=== PATIENT | male | born 1995 | race Caucasian/White ===

== ENCOUNTER 2020-05-02 22:20 | Observation (INO) | payer OTHER ==
[~2020-05-02] VITALS: Ht 185.4 cm; Wt 66.7 kg
[~2020-05-02 22:20] MED LIST: DEXAMETHASONE SOD PHOS INJ 4 MG/ML VIAL ONE; LIDOCAINE HCL 2% LOCAL INJ 5 ML SDV VIAL INJ ONE; METOCLOPRAMIDE HCL 10 MG/2ML VIAL ONE; ONDANSETRON HCL INJ 2MG/ML 2ML 2 MG/ML VIAL ONE; PROPOFOL IV EMULSION 10 MG/ML 20 ML VIAL ONE; ROCURONIUM BROMIDE 10 MG/ML 5ML VIAL IV ONE; SEVOFLURANE INHAL SOLN 250 ML PEN BTL ONE; SUCCINYLCHOLINE CHLORIDE 20 MG/ML 10ML VIAL ONE
--- NOTE | 2020-05-02 22:33 | Emergency Department Note ---
History of Present Illnes History of Present Illness Chief Complaint: Eye, Ear, Nose, Throat, Dental History of Present Illness This is a 24 year old male probably hx of esophageal stricture form history c/o " a taco stuck in my chest, some blood coming out, vomiting blood few times [employer]. He had similar problems year ago, told to f/u with GI but he never did. . Historian: Patient Arrival Mode: Car Rotary Cutter Feeder Required: No Onset (how long ago): minute(s) Radiation: Reports non-radiation Severity: moderate Onset quality: sudden Duration (how long): hour(s) Timing of current episode: constant Progression: unchanged Relieving factors: none Exacerbating factors: none Associated symptoms: Reports denies other symptoms Treatments prior to arrival: none Past Medical/Family History Physician Review I have reviewed the patient's past medical and family history. Any updates have been documented here. Past Medical History Recent Fever: No Clinical Suspicion of Infectio: No New/Unexplained Change in Ment: No Past Surgical History: None Social History Smoking Cessation: Never Smoker Counseling Performed: No Alcohol Use: None Any Illegal Drug Use: No TB Exposure/Symptoms: No Physically hurt or threatened: No ([employer], will graudate in october) Family History Family history of heart diseas: No Review of Systems Review of Systems Constitutional: Reports no symptoms EENTM: Reports no symptoms Cardiovascular: Reports no symptoms Respiratory: Reports no symptoms Gastrointestinal: Reports as per HPI, Reports abdominal pain, Reports nausea, Reports vomiting Genitourinary: Reports no symptoms Musculoskeletal: Reports no symptoms Integumentary: Reports no symptoms Neurological: Reports no symptoms Psychological: Reports no symptoms Endocrine: Reports no symptoms Hematological/Lymphatic: Reports no symptoms Physical Exam Related Data Allergies: Coded Allergies: No Known Drug Allergies (Verified Allergy, Unknown, 05/02/20) Vital signs reviewed: Yes Physical Exam CONSTITUTIONAL Constitutional: Present well-developed, Present well-nourished HENT HENT: Present normocephalic, Present atraumatic, Present oropharynx clear/moist, Present nose normal HENT L/R: Present left ext ear normal, Present right ext ear normal EYES Eyes: Reports PERRL, Reports conjunctivae normal NECK Neck: Present ROM normal PULMONARY Pulmonary: Present effort normal, Present breath sounds normal CARDIOVASCULAR Cardiovascular: Present regular rhythm, Present heart sounds normal, Present capillary refill normal, Present normal rate GASTROINTESTINAL Abdominal: Present soft, Present nontender, Present bowel sounds normal GENITOURINARY Genitourinary: Present exam deferred SKIN Skin: Present warm, Present dry MUSCULOSKELETAL Musculoskeletal: Present ROM normal NEUROLOGICAL Neurological: Present alert, Present oriented x 3, Present no gross motor or sensory deficits PSYCHOLOGICAL Psychological: Present mood/affect normal, Present judgement normal Results Laboratory Lab results reviewed: Yes Laboratory comments hgb ok Assessment & Plan Medical Decision Making MDM esophageal stricture vs dysmotility, he may have developed fissures after retching and caused GI bleed. Reassessment Reassessment time: 23:23 Reassessment still hurting and can't keep fluid down, he did have some blood from vomitus Assessment & Plan Final Impression: (1) Upper GI bleeding (2) Esophageal stricture (3) Choking Depart Disposition: ADMITTED Home Meds Reported Medications Pantoprazole Sodium* (PROTONIX) 40 Mg Tablet., 40 MG PO BID, TAB 05/04/20 Medications in the ED protonix IV, ZOfran IV, Glucagon IV Physician Attestation Provider Attestation the case discussed with Dr Aden. add consult Dr Bogdan Madsen. I have also discussed with Dr Madsen. JIMENA DAVIDSON MD May 02, 2020 22:33
[2020-05-02] MEDS ORDERED: GLUCAGON FOR INJ 1 MG VIAL ONE (22:42)
[2020-05-02] MEDS ORDERED: PANTOPRAZOLE 40 MG 10ML VIAL ONE (22:48)
[2020-05-02] MEDS ORDERED: ONDANSETRON HCL INJ 2MG/ML 2ML 2 MG/ML VIAL ONE (22:48)
[2020-05-02] MEDS ORDERED: SODIUM CHLORIDE 0.9% 1000ML 1,000 ML ONE (22:48)
[2020-05-02] MEDS ORDERED: PANTOPRAZOLE 40 MG 10ML VIAL IV STA (22:56)
[2020-05-02] MEDS ORDERED: SODIUM CHLORIDE 0.9% 1000ML 1,000 ML IV STA (22:56)
[2020-05-02] MEDS ORDERED: GLUCAGON FOR INJ 1 MG VIAL IV ONE (23:00)
[2020-05-02] MEDS ORDERED: ONDANSETRON HCL INJ 2MG/ML 2ML 2 MG/ML VIAL IV ONE (23:00)
[2020-05-02] MEDS ORDERED: PROMETHAZINE 25MG/ NS 50ML (IV) IV PRN (23:30)
[2020-05-02] MEDS ORDERED: MORPHINE SULFATE INJ 4 MG/ML INJ 1ML IV STA (23:30)
[2020-05-02] MEDS ORDERED: HYDROMORPHONE 1MG/1ML INJ IV PRN (23:30)
[2020-05-02] MEDS ORDERED: HYDROMORPHONE 2MG/ML 2 MG/ML ML IV PRN (23:30)
[2020-05-02] MEDS ORDERED: DIPHENHYDRAMINE HCL INJ 50 MG/ML VIAL IV PRN (23:30)
--- NOTE | 2020-05-02 23:40 | NUR ---
CALLED [facility] FOR TRANSPORT TO [facility] RM 295. ETA 30-45MINS
[2020-05-02] MEDS: SODIUM CHLORIDE 0.9% 1000ML 1,000 ML IV SCH (23:44)
--- NOTE | 2020-05-02 23:45 | NUR ---
REPORT TO RONEL OLGUIN FOR RM 295
[2020-05-03] VITALS (10 sets, daily range): BP systolic 109–139; BP diastolic 61–76
--- NOTE | 2020-05-03 00:31 | NUR ---
PT RESTING QUIETLY. NO COMPLAINTS AT THIS TIME
--- NOTE | 2020-05-03 00:43 | NUR ---
REPORT GIVEN TO EMS
--- NOTE | 2020-05-03 02:38 | NUR ---
PT IS TRANSFERRED FROM [facility] .PT IS AOX3 .PT HAS FOREIGN BODY IN THE ESOPHAGUS .PT C/O PAIN UPPER ABD .PT IS NOT ABLE TO SWALLOW ASSESSMENT DONE ,ORIENTED TH E PT TO THE ENVIRONMENT C/O PAIN AND GIVEN DILAUDID .DR STORM HAS SEN THE PT .ORDERED TO DO EGD .CONSENT SIGNED ,PT IS HAS TAKEN TO THE OR FOR EGD
[2020-05-03] MEDS ORDERED: PANTOPRAZOLE 40 MG 10ML VIAL ONE (03:12)
[2020-05-03] MEDS ORDERED: ONDANSETRON HCL INJ 2MG/ML 2ML 2 MG/ML VIAL IV PRN (03:15)
[2020-05-03] MEDS: PANTOPRAZOL 40MG/SOD CHL 0.9% 50 ML IV SCH ×5 (03:15→23:15)
[2020-05-03] MEDS ORDERED: SODIUM CHLORIDE 0.9% INJ 10 ML VIAL ONE (03:15)
[2020-05-03] MEDS ORDERED: SODIUM CHLORIDE 0.9% 50ML 50 ML ONE (03:21)
--- NOTE | 2020-05-03 03:53 | Operative Report ---
DATE OF PROCEDURE: 05/03/2020 SURGEON: Rick Madsen MD PROCEDURE: EGD with biopsies. INDICATION FOR PROCEDURE: Foreign body in the esophagus. MEDICATIONS: The patient was done under general endotracheal anesthesia. Please see anesthesiologist's note. DESCRIPTION OF PROCEDURE: After induction of adequate general endotracheal anesthesia with the patient in left lateral decubitus position, flexible fiberoptic Olympus gastroscope was introduced into the esophagus under direct visualization without any difficulty. Several deep serpiginous ulcers were noted in the esophagus with some overlying bright red blood. There were some concentric rings and longitudinal furrows compatible with eosinophilic esophagitis. No foreign body was noted in the esophagus. The scope was then advanced into the stomach and large amount of retained undigested food was noted in the stomach. Mucosa overlying the antrum revealed some patchy areas of erythema. Pylorus was of normal contour and shape, was intubated with ease and the scope was advanced all the way to the second portion of the duodenum. The scope was then withdrawn slowly. Mucosa overlying the proximal second portion and the duodenal bulb appeared to be within normal limits. The scope was then withdrawn back into the stomach and retroflexed, and the large amount of retained undigested food precluded visualization of the fundus, cardia, and the proximal body. The scope was then straightened out and it was subsequently withdrawn. Biopsies from the esophagus were obtained to rule out the eosinophilic esophagitis. IMPRESSION: 1. Rule out eosinophilic esophagitis. 2. Several deep serpiginous tears in the esophagus. 3. Gastritis, mild. 4. Large amount of retained undigested food in stomach. PLAN: Follow up histology. The patient remained n.p.o. Initiate Reglan 10 mg IV q.6 hours. We will also start on a Protonix drip. Rick Madsen MD [facility]/MODL /[id number] cc: Vignesh Aden MD
--- NOTE | 2020-05-03 04:06 | NUR ---
PT IS BACK FROM THE EGD NO ACUTE DISTRESS NOTED BP120/84 HR 79 R -18 TEM 98.2 .PT RESTING .NO FOREIGN FOUND .PT HAS DEEP TEAR IN THE ESOPHAGUS .CONTINUE TO MONITOR
[2020-05-03] MEDS ORDERED: SODIUM CHLORIDE 0.9% 250ML 250 ML ONE (04:21)
[2020-05-03] MEDS: METOCLOPRAMIDE HCL 10 MG/2ML VIAL IV SCH ×3 (05:45→17:20)
[2020-05-03 05:53] LABS: BASOPHILS % 0.3 % (0.0-1.0); EOSINOPHILS % 0.1 % (0.0-6.0); HEMATOCRIT 37.4 % (38.2-49.6); HEMOGLOBIN 12.5 g/dL (14.0-18.0); LYMPHOCYTES # (AUTO) 0.5 (1.0-3.2); LYMPHOCYTES % 3.9 % (18.0-39.1); MEAN CORPUSCULAR HEMOGLOBIN 29.6 pg (28-32); MEAN CORPUSCULAR HGB CONC 33.4 g/dL (31-35); MEAN CORPUSCULAR VOLUME 88.6 fL (81-99); MONOCYTES # (AUTO) 0.5 (0.2-0.8); MONOCYTES % 4.2 % (4.4-11.3); NEUTROPHILS # (AUTO) 10.9 (2.1-6.9); NEUTROPHILS % 91.1 % (38.7-80.0); PLATELET COUNT 197 x10e3/uL (140-360); RED BLOOD COUNT 4.22 x10e6/uL (4.3-5.7)
[2020-05-03 05:56] LABS: INR 0.96; PROTHROMBIN TIME 13.3 seconds (11.9-14.5)
[2020-05-03 06:07] LABS: ALANINE AMINOTRANSFERASE 11 IU/L (0-55); ALBUMIN 3.9 g/dL (3.5-5.0); ALBUMIN/GLOBULIN RATIO 1.5 (0.8-2.0); ALKALINE PHOSPHATASE 50 IU/L (40-150); ANION GAP 10.7 mmol/L (8-16); BLOOD UREA NITROGEN 16 mg/dL (7-26); BUN/CREATININE RATIO 16 (6-25); CARBON DIOXIDE 25 mmol/L (22-29); CHLORIDE 107 mmol/L (98-107); EST GLOMERULAR FILTRATION RATE > 60 ML/MIN (60-); GLUCOSE 127 mg/dL (74-118); POTASSIUM 4.7 mmol/L (3.5-5.1); SODIUM 138 mmol/L (136-145)
--- NOTE | 2020-05-03 06:23 | NUR ---
PT RESTING NO ACUTE DISTRESS NOTED ,CALL LIGHT WITH IN REACH ,CONTINUE TO MONITOR
--- NOTE | 2020-05-03 07:00 | NUR ---
RECEIVED BEDSIDE SHIFT REPORT FROM OFF GOING NIGHT NURSE. PATIENT IN STABLE CONDITION, NO S/S OF DISTRESS NOTED. IV FLUIDS INFUSING, SITE ASYMPTOMATIC AND PATENT, TRANS PARENT DRESSING C/D/I. BED IN LOWEST POSITION AND LOCKED. CALL LIGHT WITHIN REACH.
--- NOTE | 2020-05-03 07:14 | NUR ---
BEDSIDE REPORT GIVEN TO THE ONCOMING NURSE
[2020-05-03] MEDS ORDERED: PANTOPRAZOLE 40 MG 10ML VIAL IV SCH (09:00)
[2020-05-03 09:15] LABS: LYMPHOCYTES % (MANUAL) 8 % (19-48); MONOCYTES % (MANUAL) 5 % (3.4-9.0); NEUTROPHILS % (MANUAL) 86 % (40-74)
[2020-05-03 09:16] LABS: PLATELET ESTIMATE ADEQUATE; PLATELET MORPHOLOGY COMMENT NORMAL; RBC MORPHOLOGY COMMENT NORMAL
[2020-05-03] MEDS: SODIUM CHLORIDE 0.9% 1000ML 1,000 ML IV SCH ×3 (12:23→23:15)
--- NOTE | 2020-05-03 16:44 | NUR ---
Nutrition Screen Note RD Recommendation for Physician: -Recommend advancing diet as tolerated Plan of Care: RD following, monitoring for tolerance and adequacy Nutrition reason for involvement: Nutrition Risk Trigger Primary Diagnose(s): esophageal stricture, foreign body in esophagus, upper GI bleed PMH: no H/P in [facility] at this time Ht: 73 in Wt:147 lb BMI: 19.4 kg/m2 IBW:[address] Assessment: (05/03/20) Chart reviewed. Labs and meds reviewed. Pt is a 24 year old male admitted with esophageal stricture, foreign body in esophagus, and upper GI bleed. Pt had an EGD with biopsy today and is currently on a clear liquid diet. RD called pt over the phone. Pt stated he is tolerating his liquid diet. Prior to admission, pt mentioned he was eating >50% of his meals. No weight loss reported and pt stated he usually weighs 147-150 lbs. No N/V/D/C reported at this time. Will continue to monitor. Current Diet: clear liquids Malnutrition Evaluation (05/03/20) The patient does not meet criteria for a specified degree of malnutrition at this time. Will re-evaluate at follow-up as appropriate. Diet Education Needs Assessment: Diet education not indicated. Nutrition Care Level: low Signed: Alana Mccord, MARK, LD
--- NOTE | 2020-05-03 18:28 | History and Physical ---
CHIEF COMPLAINT: Dysphagia. HISTORY OF PRESENT ILLNESS: A 24-year-old male, who came into the ED after he reports eating a tortilla chip and felt like that was stuck in the distal aspect of the esophagus. While he was at home, he tried to cough it up and noticed that he had some vomiting of blood and came into the ED for further evaluation and management. The patient has had similar findings in the past several years ago and has resolved on its own. He never sought any attention in relation to this particular issue. The patient was seen and evaluated at bedside on the medical floor. He is currently doing well with no other issues at this time. The patient underwent EGD early this morning by GI, did not find the area of the tortilla chip, but did find evidence of erythema and was dilated with a dilator in that area. REVIEW OF SYSTEMS: Pertinent positive, dysphagia. The rest of 14-point review of systems are reviewed with the patient and are negative. ALLERGIES: NO KNOWN DRUG ALLERGIES. HOME MEDICATIONS: None. PAST MEDICAL HISTORY: None. PAST SURGICAL HISTORY: Reports none. PAST FAMILY HISTORY: Hypertension and diabetes. SOCIAL HISTORY: No drugs. No alcohol. Does not smoke. Good social support. PHYSICAL EXAMINATION: VITAL SIGNS: Temperature 98.3, pulse 85, respirations 18, blood pressure 109/60, pulse ox 99% on room air. GENERAL: Not in acute distress. Alert and oriented x3. Cooperative on examination. HEENT: Head is normocephalic and atraumatic. Eyes; pupils are equal, round, and reactive to light bilaterally. Extraocular movements are intact bilaterally. Throat, no evidence of any erythema or exudates in the posterior pharynx. Has poor dentition. NECK: Supple. Good range of motion. PULMONARY: Clear to auscultation bilaterally. No wheezing, no rales, no rhonchi, no crackles appreciated. CARDIOVASCULAR: Positive S1, S2. No murmurs, rubs, or gallops. ABDOMEN: Soft, nondistended, nontender to palpation. Bowel sounds present. MUSCULOSKELETAL: Strength is 5/5 throughout. On muscle strength examination, no weakness appreciated. NEUROLOGICAL: Cranial nerves 2 through 12 are grossly intact. No evidence of any neurological deficits on exam. SKIN: Intact. Warm to touch. Good capillary refill. PSYCHIATRIC: Normal affect and mood. EXTREMITIES: No edema. Good range of motion throughout. LABORATORY FINDINGS: White count 11.9, hemoglobin 12.5, hematocrit 37, platelets of 197. Coagulation; PT 13, INR 0.96. Chemistry; sodium 138, potassium 4.7, chloride 107, bicarb 25, anion gap of 10, BUN 16, creatinine is 1, glucose 127, calcium 9, total bilirubin was 0.6, AST 11, ALT 11, alkaline phosphatase 50, total protein 6.5, albumin 3.9. Coronavirus is pending. IMAGING STUDIES: None. MICROBIOLOGY: None. IMPRESSION: 1. Dysphagia, status post EGD. 2. Large amount of retained undigested food in the stomach. 3. Mild gastritis. PLAN: At this time, the patient came in because of underlying dysphagia prompting GI consultation. The patient underwent EGD earlier this morning on 05/03/2020, and had several biopsies to rule out eosinophilic esophagitis. He also has several deep tears in the esophagus, got mild gastritis, has large amount of retained undigested food in the stomach. At this time, the patient was initiated on IV Reglan as well as Protonix drip. He is on a clear liquid diet. If his diet is advanced and tolerates it well, may be potentially discharge home later today, if GI clears the patient for discharge. I did write a prescription for Protonix 40 mg p.o. b.i.d. He is otherwise doing very well. He is alert, awake, and oriented. He is back to his baseline. He is actually eager to go home. Otherwise, we will continue with same plan of care and monitor closely. MD MELCHOR Zuñiga/RIGO /[id number]
--- NOTE | 2020-05-03 19:21 | NUR ---
COMPLETED BEDSIDE SHIFT REPORT WITH ON COMING NIGHT NURSE. PATIENT IN STABLE CONDITION, NO S/S OF DISTRESS NOTED. IV FLUIDS INFUSING, SITE ASYMPTOMATIC AND PATENT, TRANSPARENT DRESSING C/D/I. BED IN LOWEST POSITION AND LOCKED. CALL LIGHT WITHIN REACH.
--- NOTE | 2020-05-03 19:59 | NUR ---
RECEIVED PT IN BED AOX3 .DENIES PAIN NO ACUTE DISTRESS NOTED IV FLUID RUNNING ,CALL LIGHT WITH IN REACH ,CONTINUE TO MONITO R
[2020-05-04] VITALS: BP 129/83
[2020-05-04 04:00] VITALS: BP 114/57
--- NOTE | 2020-05-04 05:56 | NUR ---
PT RRESTING ,DENIES PAIN AND VOMITING CONTINUE TO MONITOR,CALL LIGHT WITHIN REACH
[2020-05-04] MEDS: METOCLOPRAMIDE HCL 10 MG/2ML VIAL IV SCH ×3 (06:00→12:22)
[2020-05-04] MEDS: PANTOPRAZOL 40MG/SOD CHL 0.9% 50 ML IV SCH ×2 (06:01→11:13)
[2020-05-04] MEDS: SODIUM CHLORIDE 0.9% 1000ML 1,000 ML IV SCH (07:15)
--- NOTE | 2020-05-04 07:20 | NUR ---
BEDSIDE REPORT GIVEN TO THE ONCOMING NURSE
[2020-05-04 07:45] VITALS: BP 124/67
--- NOTE | 2020-05-04 07:45 | NUR ---
PATIENT IN BED RESTING WITH EYES CLOSED, NO DISTRESS NOTED. IV FLUID INFUSING ORDERED. BED IN LOWER POSITION, CALL LIGHT AT REACH.
[2020-05-04 08:33] VITALS: BP 124/67
--- NOTE | 2020-05-04 11:14 | NUR ---
PATIENT AMBULATED TO THE RESTROOM AND BACK TO BED. CALL LIGHT AT REACH.
[2020-05-04 12:38] VITALS: BP 123/76
--- NOTE | 2020-05-04 13:05 | Discharge Summary ---
FINAL DISCHARGE DIAGNOSES: 1. Dysphagia secondary to a food particles stuck in the distal esophagus, now resolved, status post esophagogastroduodenoscopy. 2. Large amount of retained undigested food in the stomach. 3. Mild gastritis. CONSULTANTS: We had GI. PHYSICAL EXAMINATION: VITAL SIGNS: Temperature is 98, pulse 71, respiratory rate is 20, blood pressure 123/76, and pulse ox 98% on room air. LABORATORY FINDINGS: White count 11, hemoglobin 12.5, hematocrit 37, and platelets of 197. Chemistry; sodium 138, potassium 4.7, chloride 107, bicarb 25, anion gap of 10, BUN 16, creatinine is 1, glucose 127, calcium is 9, total bilirubin is 0.6, AST 11, ALT 11, alkaline phosphatase 50, total protein is 6.5, and albumin 3.9. Coagulation; PT 13, INR 0.96. Serologies; Coronavirus is pending. Microbiology, none. IMAGING STUDIES: None. HOSPITAL COURSE: This is a 24-year-old male, comes into the ED after eating a tortilla chip that felt like he was stuck in the distal aspect of his esophagus, came into [facility] for further evaluation and management. GI was consulted. The patient underwent status post EGD on 05/03/2020, and had several biopsies performed. There was no foreign object found in the distal aspect of the esophagus, but there is evidence of some erythema. He did have some large amount of retained undigested food in the stomach according to GI's reports. The patient was then started on a Protonix drip and maintained overnight and he was started on clear liquids, advanced to regular diet which he tolerated well. He will be discharged on oral Protonix 40 mg p.o. b.i.d. as per GI recommendations. EGD showed some mild gastritis and several deep tears in the distal esophagus. Otherwise, he was doing well back to normal baseline with no complaints. He has been cleared for discharge by GI. On the day of discharge, vital signs were stable, labs reviewed and stable. The patient was seen and evaluated, examined thoroughly on the day of discharge. No other complaints. The patient verbalized understanding and agrees to plan of care to follow up with outpatient with primary care physician in 1 week and the GI specialist in about 2 weeks' time for biopsy results. MEDICATIONS: See med reconciliation form. DISPOSITION: Home. CONDITION: Stable. DIET: Heart healthy. In the event of any worsening symptoms, the patient was advised to come back to the ED for further evaluation. Discharge summary took greater than 35 minutes. MD MELCHOR Zuñiga/MODL /[id number]
[2020-05-04 16:09] VITALS: BP 133/80
--- NOTE | 2020-05-04 16:43 | NUR ---
SPOKE WITH DR STORM REGARDING PATIENT TOLERATING FULL LIQUID DIET. ORDER RECEIVED TO ADVANCE DIET TO PUREE, IF PATIENT TOLERATED WELL, HE CAN BE DISCHARGED.
[2020-05-04] MEDS ORDERED: PANTOPRAZOLE SO40 MG PO (18:00)
--- NOTE | 2020-05-04 18:16 | NUR ---
PATIENT TOLERATED HIS DINNER WELL. DISCHARGED HOME. DISCHARGE INSTRUCTIONS, PRESCRIPTIONS, AND FOLLOW UP GIVEN TO PATIENT, HE VERBALIZED UNDERSTANDING. IV TO LEFT AC REMOVED WITH TIP INTACT. ALL PERSONAL ITEMS TAKEN WITH PATIENT. REFUSED WHEEL CHAIR, BUT WAS ACCOMPANIED BY HOSPITAL STAFF TO FRONT LOBBY IN STABLE CONDITION.
== END 2020-05-04 18:15 | disposition home or self-care (01) ==
LOC: FSED 22:50 → ERHOLD 23:35 → MED/SURG3 05-03 01:08
PROVIDERS: ADMIT Internal Medicine; ATTEND Internal Medicine
DX: K22.11 Ulcer of esophagus with bleeding (principal); K29.70 Gastritis, unspecified, without bleeding; T18.128A Food in esophagus causing other injury, initial encounter; Z11.59 Encounter for screening for other viral diseases
CPT/HCPCS: 36415; 43239; 80053; 85025; 85610; 88305; 96374; 96375; 96376; 99284; G0378; J0330; J1100; J1170; J1610; J2001; J2270; J2405; J2765; J7030; J7050; U0002

== ENCOUNTER → 2020-05-14 | Day surgery (SDC) | payer OTHER ==
[~2020-05-14] MED LIST changes: -DEXAMETHASONE SOD PHOS INJ 4 MG/ML VIAL ONE; +ETOMIDATE 2 MG/ML 10 ML INJ IV ONE; -ONDANSETRON HCL INJ 2MG/ML 2ML 2 MG/ML VIAL ONE; +PANTOPRAZOLE 40 MG 10ML VIAL ONE; +PANTOPRAZOLE SO40 MG PO; -ROCURONIUM BROMIDE 10 MG/ML 5ML VIAL IV ONE; -SEVOFLURANE INHAL SOLN 250 ML PEN BTL ONE; -SUCCINYLCHOLINE CHLORIDE 20 MG/ML 10ML VIAL ONE
[2020-05-14 14:40] VITALS: BP 116/78
--- NOTE | 2020-05-14 21:10 | Operative Report ---
DATE OF PROCEDURE: 05/14/2020 SURGEON: Rick Madsen MD PROCEDURE: EGD with biopsies and esophageal dilatation. INDICATIONS FOR EGD: Dysphagia. MEDICATIONS: The patient was done under MAC, please see anesthesiologist's note. PROCEDURE IN DETAIL: With the patient in left lateral decubitus position flexible fiberoptic Olympus gastroscope was introduced into the esophagus under direct visualization without any difficulty. Multiple concentric rings and longitudinal furrows were noted in the esophagus compatible with the eosinophilic esophagitis. There was a stricture noted in the distal esophagus and the scope was gently advanced into the stomach, but with that, it has induced a longitudinal tear in the distal esophagus. Mucosa overlying the antrum and the body revealed some diffuse erythema and moderate edema, and biopsies were obtained and sent to stain for H pylori. Pylorus was of normal contour and shape, it was intubated with ease and the scope was advanced all the way to the second portion of the duodenum. The scope was then withdrawn slowly. Mucosa overlying the proximal second portion and the duodenal bulb appeared to be within normal limits. Biopsies were obtained to rule out sprue. The scope was then withdrawn back into the stomach and retroflexed mucosa overlying the fundus and cardia appeared to be within normal limits. The scope was then straightened out it was subsequently withdrawn. The esophagus was then dilated to size 44-[place] Tony. The patient tolerated the procedure well. IMPRESSION: 1. Eosinophilic esophagitis. 2. Esophageal stricture GE junction, dilated to size 44-[place] Tony. 3. GE junction somewhat nodular, biopsied. 4. Gastritis, biopsied. Biopsies sent to stain for Helicobacter pylori. 5. Rule out sprue. PLAN: Follow up histology. Continue Protonix at 40 mg one p.o. a.c. b.i.d. Rick Madsen MD [facility] /[id number] cc: Tracy Black
== END | disposition home or self-care (01) ==
LOC: ENDO 11:30
PROVIDERS: ATTEND Internal Medicine Gastroenterology
DX: K29.70 Gastritis, unspecified, without bleeding (principal); K22.2 Esophageal obstruction; K20.0 Eosinophilic esophagitis; K22.8 Other specified diseases of esophagus; K31.1 Adult hypertrophic pyloric stenosis; K20.9 Esophagitis, unspecified; S11.21XD Laceration without foreign body of pharynx and cervical esophagus, subsequent encounter; F17.210 Nicotine dependence, cigarettes, uncomplicated; Z01.812 Encounter for preprocedural laboratory examination; Z11.59 Encounter for screening for other viral diseases
CPT/HCPCS: 43239; 43450; C9113; J2001; J2704; J2765; U0002